=== PATIENT | female | born 1965 ===

== ENCOUNTER 2021-08-20 08:56 | Day surgery (SDC) | payer OTHER, SELFPAY ==
[~2021-08-20] VITALS: Ht 155 cm; Wt 90.3 kg
[2021-08-20] MEDS ORDERED: fentaNYL citrate 0.05 MG/ML VIAL ONE (11:29)
[2021-08-20] MEDS ORDERED: MIDAZOLAM 5 MG/5 ML VIAL ONE (11:29)
[2021-08-20] MEDS ORDERED: diphenhydrAMINE 50 MG/ML VIAL ONE (11:29)
[2021-08-20] MEDS ORDERED: LIDOCAINE 2% 100 MG/5 ML UJET TP ONE (11:29)
[2021-08-20] MEDS: fentaNYL citrate 0.05 MG/ML VIAL IVP ONE (11:38)
[2021-08-20] MEDS: diphenhydrAMINE 50 MG/ML VIAL IVP ONE (11:39)
[2021-08-20] MEDS: MIDAZOLAM 2 MG/2 ML VIAL IVP ONE (11:39)
[2021-08-20] MEDS: LIDOCAINE 2% 100 MG/5 ML UJET TP ONE (11:40)
== END 2021-08-20 14:06 | disposition home or self-care (01) ==
LOC: MDS 08:56 → MMU 09:24 → MDS 14:06
PROVIDERS: ATTEND Internal Medicine Gastroenterology
DX: Z12.11 Encounter for screening for malignant neoplasm of colon (principal); M19.90 Unspecified osteoarthritis, unspecified site; Z79.899 Other long term (current) drug therapy; Z20.822 Contact with and (suspected) exposure to COVID-19
CPT/HCPCS: 45378; 87426; J1200; J2250; J3010